=== PATIENT | male | born 1970 ===

== ENCOUNTER 2018-07-15 10:02 | Emergency (ER) | payer OTHER ==
[~2018-07-15] VITALS: Ht 172.7 cm; Wt 113.4 kg
== END 2018-07-15 16:19 | disposition home or self-care (01) ==
LOC: ER 10:02 → CPU-OBS 10:28 → ER 16:19
DX: R07.89 Other chest pain (principal); R42 Dizziness and giddiness
CPT/HCPCS: G0378; G0379; 93005